=== PATIENT | female | born 1985 | race Caucasian/White ===

== ENCOUNTER 2025-01-06 12:18 | Observation (INO) | payer MEDICAID, SELFPAY ==
[2025-01-06] VITALS (8 sets, daily range): BP systolic 115–147; BP diastolic 72–99; PULSE 81–110; RESP 15–20; TEMP 36.4–36.8; O2SAT 94–100; BMI 31.6
--- NOTE | 2025-01-06 12:31 | CTR_ITS ---
PROCEDURE INFORMATION: Exam: CT Abdomen And Pelvis With Contrast Exam date and time: 01/06/2025 1:35 PM Age: 39 years old Clinical indication: Abdominal pain; Prior surgery; Surgery date: 6+ months; Surgery type: Gb; Additional info: Abd pain TECHNIQUE: Imaging protocol: Computed tomography of the abdomen and pelvis with contrast. Axial, coronal and sagittal reformatted images were created and reviewed. Radiation optimization: All CT scans at this facility use at least one of these dose optimization techniques: automated exposure control; mA and/or kV adjustment per patient size (includes targeted exams where dose is matched to clinical indication); or iterative reconstruction. Contrast material: OMNI 350; Contrast volume: 100 ml; Contrast route: INTRAVENOUS (IV); COMPARISON: No relevant prior studies available. RADIATION DOSE METRICS: Total DLP (mGy-cm): 843.64 FINDINGS: Diaphragm: Small hiatal hernia. Liver: Mild hepatic steatosis. Gallbladder and biliary ducts: Status post cholecystectomy. No biliary ductal dilatation. Pancreas: Unremarkable. Spleen: Unremarkable. Adrenal glands: Normal. No mass. Kidneys and ureters: No mass. No radiodense calculi. No hydronephrosis. Stomach and bowel: No bowel wall thickening. No obstruction. No pneumatosis. Appendix: Normal. Intraperitoneal space: Trace nonspecific free pelvic fluid, likely physiologic. No organized fluid collection. No free air. Vasculature: Unremarkable. No aneurysm. Lymph nodes: No pathologically enlarged lymph nodes. Urinary bladder: Unremarkable as visualized. Reproductive: Probable involuting left ovarian corpus luteal cyst. Bones/joints: No acute osseous abnormality. Osteopenia. Mild degenerative changes. Fixation hardware in the left sacroiliac joint. Soft tissues: Unremarkable. CT/CT abdomen pelvis w con* [id number]: 1[address] No CT evidence of acute intra-abdominal or pelvic pathology. 2. Additional findings, as above.
--- NOTE | 2025-01-06 12:32 | ECG_ITS ---
[facility] Test Date: 2025-01-06 Pat Name: Estephania Roblero Department: Room: Gender: Female [employer] Machine Setter: : 1985 Requested By: Joseph Norris Order Number: [id number] Fely MD: Latasha Estevez M.D. Measurements Intervals [place] Rate: 96 P: 68 MD: 145 QRS: 47 QRSD: 86 T: 30 QT: 360 QTc: 455 Interpretive Statements SINUS RHYTHM Nonspecific ST changes No previous ECG available for comparison Electronically Signed On 01-07-2025 12:34:14 ROD MACHINE OPERATOR by Latasha Estevez M.D. [email or web address]
[2025-01-06 12:51] LABS: Basophils % 0.5 %; Hematocrit 45.8 % (36-47); Lymphocytes # 0.9 10^3/uL (0.8-4.8); Lymphocytes % 14.1 %; Mean Corpuscular HGB Conc 31.9 g/dL (30-55); Mean Corpuscular Hemoglobin 29.6 pg (27-33); Mean Corpuscular Volume 92.7 fl (85-98); Mean Platelet Volume 10.6 fL (7.4-10.4); Monocytes # 0.3 10^3/uL (0.2-0.9); Monocytes % 4.2 %; Neutrophils # 5.31 10^3/uL (1.8-7.7); Neutrophils % 80.6 %; Nucleated Red Blood Cells % 0 %; Platelet Count 302 10^3/cmm (157-399); Red Blood Count 4.94 10^6/uL (3.85-5.65); Red Cell Distribution Width 12.5 % (12.1-15.1); White Blood Count 6.59 10^3/uL (3.29-11.43)
--- NOTE | 2025-01-06 13:01 | ED_ITS ---
HPI - GI Bleed 2 General: Chief complaint: GI Bleed Stated complaint: throwing up blood Time Seen by Provider: 01/06/25 12:30 History of Present Illness: 39-year-old female presents to the [facility] ency room reporting hematemesis. Patient is a daily drinker she is mildly tachycardic she has had abdominal discomfort for some time now. She has had workup for similar presentation in [place] including a EGD. We did get the old records on that from [place] see below she denies any chest pain or shortness of breath at this time. She is extremely anxious and tachycardic. She did have further episodes of hematemesis here. Associated symptoms: Reports abdominal pain, nausea and vomiting; Denies chills, fever(s) or rash Related Data Home Medications ?Medication ?Instructions ?Recorded ?Confirmed albuterol sulfate 90 mcg/actuation 90 mcg inhalation A S DIRECTED 01/06/25 01/06/25 aerosol inhaler (Ventolin HFA) amoxicillin 500 mg capsule 500 mg PO TID 01/06/2512/02 cimetidine 800 mg tablet 800 mg PO DAILY 01/06/2512/02 clonazepam 0.5 mg tablet 0.5 mg PO PRN Anxiety 01/06/25 cyclobenzaprine 10 mg tablet 10 mg PO DAILY 01/06/25 0 01/06/25 hydroxychloroquine 200 mg tablet 200 mg PO BID Lupus 0 01/06/25 01/06/25 levetiracetam 1,000 mg tablet 1,000 mg PO BID 01/06/25 01/06/25 metoprolol succinate 25 mg 25 mg PO BID 01/06/2501/06 tablet,extended release 24 hr ondansetron 8 mg disintegrating 8 mg PO PRN PRN Nausea And Vomiting 01/06/25 01/06/25 tablet pantoprazole 40 mg tablet,delayed 40 mg PO BID 5 01/06/25 release prednisone 20 mg tablet 20 mg PO DAILY 01/06/2512/02 quetiapine 400 mg tablet 400 mg PO DAILY 01/06/2512/02 rizatriptan 10 mg tablet 10 mg PO Q2H PRN Migraines 0 01/06/25 01/06/25 sucralfate 1 gram tablet 1 g PO BID 01/06/25 01/06/25 topiramate 50 mg tablet 50 mg PO DAILY 01/06/2512/02 vortioxetine 5 mg tablet 5 mg PO DAILY 01/06/2501/06 zolpidem 10 mg tablet 10 mg PO DAILY 01/06/2512/02 Previous Rx's ?Medication ?Instructions ?Recorded prochlorperazine maleate 10 mg 10 mg PO Q6H PRN refrac tory nausea 01/07/25 tablet (Compazine) 24 hours #30 tabs Allergies Allergy/AdvReac Type Severity Reaction Status Date / Time acetaminophen (From Tylenol) Allergy ALGY-Rash Verified 01/06/25 12:37 amitriptyline Allergy ALGY-Rash Verified 01/06/25 12:37 asenapine (From Saphris) Allergy ALGY-Rash Verified 01/06/25 12:37 naproxen Allergy ALGY-Rash Verified 01/06/25 12:37 pregabalin (From Lyrica) Allergy Unknown Verified 01/06/25 12:37 varenicline (From Chantix) Allergy Unknown Verified 01/06/25 12:37 Review of Systems 2 Const: Denies: fever(s) or chills Card: Denies: chest pain Resp: Denies: dyspnea GI: Reports: abdominal pain, nausea, vomiting, hematemesis and coffee ground emesis; Denies: hematochezia or melena : Denies: dysuria, urinary frequency or urinary urgency Musc: Denies: neck pain or back pain Skin/Breast: Denies: rash PFSH ED 2 PFSH: Medical History Tachycardia Esophagitis Gastroparesis Rheumatoid arthritis Lupus Bipolar disorder Tobacco use disorder Fear of hospitals PTSD (post-traumatic stress disorder) Depression Alcohol use disorder Surgical History History of section History of shoulder surgery History of knee surgery History of cholecystectomy History of esophagogastroduodenoscopy Family History Grandfather Prostate cancer Father Lung cancer Mother Breast cancer Social History (Reviewed 01/08/25 @ 06:36 by ISAI Beckford Smoking and tobacco/nicotine status: current every day tobacco/nicotine user Alcohol intake: current Substance/Drug Use: former Additional social history: Smokes 10 packs of cigarettes per day. Remote history of illicit drug use, quit over 10 years ago. Trying to quit drinking alcohol, currently drink 3 beers a day. Female Reproductive History: Date of last menstrual period: 01/01/25 Physical Exam 2 Const: GENERAL APPEARANCE: cooperative ORIENTATION/CONSCIOUSNESS: Yes awake, Yes oriented to person, Yes oriented to place and Yes oriented to time HENMT: COMMON NORMALS: normocephalic, atraumatic and hearing grossly normal bilaterally HEAD & SCALP: normocephalic and atraumatic Resp: COMMON NORMALS: normal respiratory effort, No retractions, No use of accessory muscles and clear to auscultation bilaterally AUSCULTATION: clear to auscultation bilaterally Cardio: COMMON NORMALS: regular rate, regular rhythm and No murmurs present (Cardio) RATE: regular rate RHYTHM: regular rhythm GI: COMMON NORMALS: Soft to palpation and No hepatosplenomegaly present A USCULTATION: Yes normoactive bowel sounds PALPATION: Yes Soft to palpation, No Tenderness to palpation present (GI), No Guarding due to palpation present (GI) and Yes No hepatosplenomegaly present Extremity: COMMON NORMALS: normal to inspection, capillary refill normal, no clubbing, cyanosis or edema, no calf tenderness and no pedal edema Neuro: SENSORIUM/ORIENTATION: Yes oriented to person, Yes oriented to place and Yes oriented to time Skin: COMMON NORMALS: no rashes or lesions noted GENERAL SKIN EXAM: no rashes or lesions noted Course 2 Vital Signs: Vital signs: Vital Signs Temperature 98.1 F 01/07/25 08:00 Pulse Rate 88 01/07/25 09:45 Respiratory Rate 17 01/07/25 08:00 Blood Pressure 120/72 01/07/25 09:45 Pulse Oximetry 99 01/07/25 09:45 Oxygen Delivery Me thod Room Air 01/07/25 08:00 MDM - GI Bleed Medical Decision Making Patient very tachycardic up to the 120s at times but is sinus tachycardia responded well to Ativan concerned she may be withdrawing from alcohol on the records we got from [place] she reported to them she drinks more than what she had told us. She did have further episodes of hematemesis. She did not have any syncope. We were able to eventually get the EGD report from [place] there is no gastric or esophageal varices. Will admit due to her tachycardia put her on a CIWA protocol she has been given Protonix. Discussed with Dr. Cartwright orders written Medical Records I reviewed the patient's medical records. Lab Data I reviewed the patient's lab results. 01/07/25 05:17 01/07/25 05:17 Radiology Impressions Abdomen/Pelvis CT 01/06/25 12:31 IMPRESSION: 1. No CT evidence of acute intra-abdominal or pelvic pathology. 2. Additional findings, as above. Laboratory Results WBC 6.59 10^3/uL (3.29-11.43) 01/06/25 12:43 RBC 4.94 10^6/uL (3.85-5.65) 01/06/25 12:43 Hgb 14.60 g/dL (11.27-16.99) 01/06/25 12:43 Hct 45.8 % (36-47) 01/06/25 12:43 MCV 92.7 fl (85-98) 01/06/25 12:43 MCH 29.6 pg (27-33) 01/06/25 12:43 MCHC 31.9 g/dL (30-55) 01/06/25 12:43 RDW 12.5 % (12.1-15.1) 01/06/25 12:43 Plt Count 302 10^3/cmm (157-399) 01/06/25 12:43 MPV 10.6 fL (7.4-10.4) H 01/06/25 12:43 Neut % (Auto) 80.6 % 01/06/25 12:43 Lymph % (Auto) 14.1 % 01/06/25 12:43 [place] % (Auto) 4.2 % 01/06/25 12:43 Eos % (Auto) 0.0 % 01/06/25 12:43 Baso % (Auto) 0.5 % 01/06/25 12:43 Neut # (Auto) 5.31 10^3/uL (1.8-7.7) 01/06/25 12:43 Lymph # (Auto) 0.9 10^3/uL (0.8-4.8) 01/06/25 12:43 [place] # (Auto) 0.3 10^3/uL (0.2-0.9) 01/06/25 12:43 Eos # (Auto) 0.0 10^3/uL (0.0-0.8) 01/06/25 12:43 Baso # (Auto) 0.0 10^3/uL (0.0-0.1) 01/06/25 12:43 Nucleated RBC % (auto) 0 % 01/06/25 12:43 Nucleated RBCs # 0.0 /100WBC 01/06/25 12:43 PT 12.50 SECONDS (12.1-14.9) 01/06/25 12:43 INR 0.88 (0.8-1.2) 01/06/25 12:43 APTT 24.0 SECONDS (23.9-36.7) 01/06/25 12:43 Sodium 135 mmol/L (136-145) L 01/06/25 12:43 Potassium 3.8 mmol/L (3.5-5.1) 01/06/25 12:43 Chloride 101 mmol/L (98-107) 01/06/25 12:43 Carbon Dioxide 25 mmol/L (22-29) 01/06/25 12:43 Anion Gap 12.8 (5-19) 01/06/25 12:43 BUN 12 mg/dL (6-20) 01/06/25 12:43 Creatinine 1.1 mg/dL (0.5-0.9) H 01/06/25 12:43 GFR Calculation 55.6 mL/min (90-130) L 01/06/25 12:43 Glucose 164 mg/dL (65-115) H 01/06/25 12:43 Calculated Osmolality 283 mOsm/kg (285-295) L 01/06/25 12:43 Calcium 9.4 mg/dL (8.5-10.5) 01/06/25 12:43 Total Bilirubin 0.3 mg/dL (0.15-1.2) 01/06/25 12:43 AST 23 U/L (0-32) 01/06/25 12:43 ALT 21 U/L (0-33) 01/06/25 12:43 Alkaline Phosphatase 99 U/L (35-105) 01/06/25 12:43 Total Protein 7.3 g/dL (6.6-8.7) 01/06/25 12:43 Albumin 4.3 g/dL (3.5-5.2) 01/06/25 12:43 Globulin 3.0 g/dL (1.3-4.6) 01/06/25 12:43 HCG, Qual Negative (Negative) 01/06/25 12:43 Urine Color Yellow (Yellow) 01/06/25 13:02 Urine Appearance Turbid (CLEAR) A 01/06/25 13:02 Urine pH 8.5 (5-7) A 01/06/25 13:02 Ur Specific [place] 1.021 (1.005-1.030) 01/06/25 13:02 Urine Protein 2+ (Negative) A 01/06/25 13:02 Urine Glucose (UA) Negative (Normal) 01/06/25 13:02 Urine Ketones Negative (Negative) 01/06/25 13:02 Urine Blood Negative (Negative) 01/06/25 13:02 Urine Nitrate Negative (Negative) 01/06/25 13:02 Urine Bilirubin Negative (Negative) 01/06/25 13:02 Urine Urobilinogen 1.0 mg/dL (Negative) 01/06/25 13:02 Ur Leukocyte Esterase Trace (Negative) A 01/06/25 13:02 Urine RBC 0-4 /hpf (0-2) H 01/06/25 13:02 Urine WBC 0-4 /hpf (0-5) H 01/06/25 13:02 Ur Squamous Epith Cells 15-25 /hpf (0-5) H 01/06/25 13:02 Amorphous Sediment 3+ /hpf 01/06/25 13:02 Urine Bacteria 1+ /hpf (NONE) H 01/06/25 13:02 Hyaline Casts 5-10 /lpf H 01/06/25 13:02 Gastric Occult Blood Positive (Negative) H 01/06/25 15:22 Blood Type O Positive 01/06/25 12:43 Rho(D) Type Rh positive 01/06/25 12:43 Antibody Screen Negative 01/06/25 12:43 All radiology interpretation(s) finalized by discharge Discharge Plan Discharge Patient Disposition: Admitted As Inpatient Admit Provider: Dimitris Cartwright Clinical Impression: Barretts esophagus, Nausea and vomiting, Hematemesis, Alcohol use disorder Condition: Stable Discharge Diet: Advance as tolerated and Usual diet Discharge Activity: Resume usual activity and Increase activity as tolerated Coding Level of Care Code ED Human Capital Analyst for Amado Andrews
[2025-01-06 13:03] LABS: INR 0.88 (0.8-1.2)
[2025-01-06 13:08] LABS: Alanine Aminotransferase 21 U/L (0-33); Albumin Level 4.3 g/dL (3.5-5.2); Alkaline Phosphatase 99 U/L (35-105); Anion Gap 12.8 (5-19); Aspartate Amino Transferase 23 U/L (0-32); Blood Urea Nitrogen 12 mg/dL (6-20); Calcium 9.4 mg/dL (8.5-10.5); Carbon Dioxide 25 mmol/L (22-29); Chloride 101 mmol/L (98-107); Creatinine Clr Calc Pharmacy 85.9858; Glomerular Filtration Rate 55.6 mL/min (90-130); Glucose 164 mg/dL (65-115); Osmolality Calculated 283 mOsm/kg (285-295); Potassium 3.8 mmol/L (3.5-5.1); Sodium 135 mmol/L (136-145); Total Bilirubin 0.3 mg/dL (0.15-1.2); Total Protein 7.3 g/dL (6.6-8.7)
[2025-01-06 13:12] LABS: Bilirubin Urine Negative (Negative); Blood Urine Negative (Negative); Glucose Urine UA Negative (Normal); Ketones Urine Negative (Negative); Leukocyte Esterase Urine Trace (Negative); Nitrate Urine Negative (Negative); Protein Urine 2+ (Negative); Specific Gravity, Urine 1.021 (1.005-1.030); Urine Appearance Turbid (CLEAR); Urine Color Yellow (Yellow); pH Urine 8.5 (5-7)
[2025-01-06 13:14] LABS: HCG, Serum Qual Negative (Negative)
[2025-01-06 13:18] LABS: Add Urine Microscopic? YES; Bacteria Urine 1+ /hpf; RBC Urine 0-4 /hpf (0-2); Squamous Epithelial Cell Urine 15-25 /hpf (0-5); WBC Urine 0-4 /hpf (0-5)
[2025-01-06 13:19] LABS: Amorphous Sediment Urine 3+ /hpf
[2025-01-06] MEDS: iohexol 350 mg/mL 500 mL Btl (per mL) IV (13:38)
--- NOTE | 2025-01-06 14:44 | PC.NURSE ---
PER VERBAL ORDER FROM DR. BEARD, ORDER AND ADMIN ATIVAN 1MG IVP ONCE DUE TO N/V AND ANXIETY
[2025-01-06] MEDS: LORazepam 2 mg/mL INJ 1 mL 1 MG IVP (14:50)
[2025-01-06] MEDS: lidocaine 2% viscous 15 ML, aluminum-mag hydrox-simethicon 30 ML, sucralfate oral liq 1 GM PO (15:39)
[2025-01-06 16:12] LABS: Gastricult Occult Blood Positive (Negative)
[2025-01-06] MEDS: prochlorperazine 10 mg/2 mL Inj IVP (16:12)
--- NOTE | 2025-01-06 16:15 | PC.NURSE ---
PER VERBAL ORDER FROM DR. BEARD, ORDER AND ADMIN ATIVAN 2MG IVP ONCE FOR POSSIBLE ETOH WITHDRAWALS.
[2025-01-06] MEDS: pantoprazole 40 mg SDV 80 MG IVP (16:23)
[2025-01-06] MEDS: LORazepam 2 mg/mL INJ 1 mL IVP ×3 (16:34→22:15)
--- NOTE | 2025-01-06 17:09 | PM.HP ---
Providers/Chief Complaint Primary Care Provider: Florina Campbell Chief Complaint: throwing up blood History of Present Illness Estephania Roblero is a 39 year old female with past medical history significant for lupus, rheumatoid arthritis, depression, bipolar disorder, PTSD, GERD, Daniels's esophagus, esophagitis, tobacco use, and alcohol use who presents emergency department with hematemesis. She does have a history of recent hematemesis but symptoms again started today. She endorses associated nausea, vomiting, and anxiety. Oral intake worsens symptoms. Denies alleviating factors. She reports a history of alcohol use. She is trying to quit drinking. She is down to only 3 beers a day now. She does have a history of recent hematemesis. She underwent an EGD on December 25, 2024 at [facility]. EGD report has been obtained by the ED and is being uploaded to the chart. EGD she did show evidence of a erosive esophagitis, Daniels's esophagus, no masses, no gastric varices, and normal duodenal mucosa. Review of Systems Narrative: A complete review of systems was obtained and is negative except as stated in HPI. Medications/Allergies Home Medications ?Medication ?Instructions ?Recorded ?Confirmed ?Last Taken ?Type amoxicillin 500 mg capsule 500 mg PO TID 01/06/25 01/06/25 Unknown History cimetidine 800 mg tablet 800 mg PO DAILY 01/06/25 01/06/25 Unknown History clonazepam 0.5 mg tablet 0.5 mg PO DAILY 01/06/25 01/06/25 Unknown History hydroxychloroquine 200 mg tablet 200 mg PO BID 01/06/25 01/06/25 Unknown History levetiracetam 1,000 mg tablet 1,000 mg PO BID 01/06/25 01/06/25 Unknown History metoprolol succinate 25 mg 25 mg PO TID 01/06/25 01/06/25 Unknown History tablet,extended release 24 hr ondansetron 8 mg disintegrating 8 mg PO PRN PRN Nausea And Vomiting 01/06/25 01/06/25 Unknown History tablet pantoprazole 40 mg tablet,delayed 40 mg PO BID 01/06/25 01/06/25 Unknown History release paroxetine HCl 20 mg tablet 20 mg PO DAILY 01/06/25 01/06/25 Unknown History prednisone 20 mg tablet 20 mg PO DAILY 01/06/25 01/06/25 Unknown History quetiapine 400 mg tablet 400 mg PO DAILY 01/06/25 01/06/25 Unknown History sucralfate 1 gram tablet 1 g PO BID 01/06/25 01/06/25 Unknown History zolpidem 10 mg tablet 10 mg PO DAILY 01/06/25 01/06/25 Unknown History Allergies Allergy/AdvReac Type Severity Reaction Status Date / Time acetaminophen (From Tylenol) Allergy ALGY-Rash Verified 01/06/25 12:37 amitriptyline Allergy ALGY-Rash Verified 01/06/25 12:37 asenapine (From Saphris) Allergy ALGY-Rash Verified 01/06/25 12:37 naproxen Allergy ALGY-Rash Verified 01/06/25 12:37 pregabalin (From Lyrica) Allergy Unknown Verified 01/06/25 12:37 varenicline (From Chantix) Allergy Unknown Verified 01/06/25 12:37 PFSH Acute PFSH: Medical History Gastroparesis Rheumatoid arthritis Lupus Bipolar disorder Tobacco use disorder Fear of hospitals PTSD (post-traumatic stress disorder) Depression Alcohol use disorder Surgical History History of section History of shoulder surgery History of knee surgery History of cholecystectomy History of esophagogastroduodenoscopy Family History Grandfather Prostate cancer Father Lung cancer Mother Breast cancer Social History Smoking and tobacco/nicotine status: current every day tobacco/nicotine user Alcohol intake: current Substance/Drug Use: former Additional social history: Smokes 10 packs of cigarettes per day. Remote history of illicit drug use, quit over 10 years ago. Trying to quit drinking alcohol, currently drink 3 beers a day. Female Reproductive History: Date of last menstrual period: 01/01/25 Vitals/I&O/Wt Last Vital Signs Temp 98.2 F 01/06/25 12:40 Pulse 102 H 01/06/25 16:38 Resp 20 H 01/06/25 15:30 BP 115/93 01/06/25 16:38 Pulse Ox 96 01/06/25 16:38 O2 Del Method Room Air 01/06/25 16:38 Weight last 48 hrs Weight 97.069 kg Physical Exam Narrative: General: Patient is awake. Appears slightly anxious. Head: Normocephalic. Atraumatic. EOM intact. Dry mucous membranes. Neck: No JVD. Cardiovascular: Regular rhythm. No gallops. No murmurs. Mildly tachycardic. Lungs: Clear to auscultation, no use of accessory muscles, no crackles or wheezes. Skin: No jaundice. No rashes. Abdomen: Normal bowel sounds, abdomen soft and nontender. Extremities: No cyanosis or clubbing. Musculoskeletal: No swollen or erythematous joints. Neurological: Moves all 4 extremities. No myoclonus. Data 01/06/25 12:43 01/06/25 12:43 A&P Assessment and plan (1) Hematemesis: Patient with hematemesis consistent with acute upper GI bleed Start IV PPI Clear liquid diet, may advance as tolerated if symptoms improve this evening Start IV fluids Trend hemoglobin (2) Nausea and vomiting: Patient with intractable nausea and vomiting Will order multi antiemetics IV fluid resuscitation (3) Esophagitis: EGD report reviewed, will be uploaded into medical records Patient on amoxicillin, rabia for H. pylori was positive during EGD PPI as above (4) Alcohol use disorder: Would benefit from cessation Will monitor with CIWA (5) Tobacco use disorder: Would benefit from cessation Patient agreeable to nicotine patch (6) Depression: Depression: Continue Paxil Bipolar disorder: Continue Seroquel (7) Tachycardia: Continue home metoprolol Plan Lupus: Continue hydroxychloroquine DVT prophylaxis: Low risk. Patient ambulatory. PDMP PDMP Reviewed: Not Reviewed Attestations Medical Necessity Statement*: Patient presents with hematemesis with expected hospitalization not to cross 2 midnights for serial hemoglobin checks, IV PPI, IV fluids and supportive care. Coding Level of Care Code 08975 Diagnoses Hematemesis K92.0 Nausea and vomiting R11.2 Esophagitis K20.90 Alcohol use disorder F10.90 Tobacco use disorder F17.200 Depression F32.A Tachycardia R00.0
[2025-01-06] MEDS: levETIRAcetam 500 mg Tablet 1000 MG PO (18:46)
[2025-01-06] MEDS: nicotine 21 mg Patch 1 PATCH TRANSDERMA (18:54)
[2025-01-06] MEDS: sodium chloride 0.9% 1,000 ML 125 ML IV (18:55)
[2025-01-06] MEDS: amoxicillin 500 mg Capsule PO (22:14)
[2025-01-06] MEDS: hydroxychloroquine 200 mg Tablet PO (22:14)
[2025-01-06] MEDS: metoprolol succinate ER (24 HR) 25 mg Tablet PO (22:14)
[2025-01-06] MEDS: ondansetron 2 mg/ML SDV 2 mL 4 MG IVP (22:15)
[2025-01-06] MEDS: zolpidem 5 mg Tablet 10 MG PO (22:15)
--- NOTE | 2025-01-06 23:00 | PC.NURSE ---
Entered room to administer medications and perform assessments. Patient's significant other was lying in bed with the patient. Educated on safety protocols and that only one adult may use the bed at a time for safety reasons. Patient and significant other agreeable and stated understanding. Educated patient on signs and symptoms of alcohol withdrawal, CIWA assessment and scoring, and treatment of withdrawal symptoms. Educated on medications ordered and treatment plan. Confirmed and updated home medication list, patient was able to state when she last took each home medication. Home medications present at bedside, educated that these medications should be locked in pyxis or taken home. Patient verbalized understanding. All questions answered at this time.
[2025-01-07] VITALS: BP 123/70; PULSE 97; RESP 17; TEMP 36.6; O2SAT 98
[2025-01-07 04:00] VITALS: BP 113/77; PULSE 97; RESP 16; TEMP 36.7; O2SAT 93
[2025-01-07] MEDS: prochlorperazine 10 mg/2 mL Inj IVP (05:00)
[2025-01-07] MEDS: LORazepam 2 mg/mL INJ 1 mL IVP (05:00)
[2025-01-07 05:26] LABS: Basophils # 0.1 10^3/uL (0.0-0.1); Basophils % 0.9 %; Eosinophils # 0.1 10^3/uL (0.0-0.8); Eosinophils % 1.5 %; Hematocrit 43.3 % (36-47); Lymphocytes # 2.1 10^3/uL (0.8-4.8); Lymphocytes % 31.6 %; Mean Corpuscular HGB Conc 31.4 g/dL (30-55); Mean Corpuscular Hemoglobin 29.8 pg (27-33); Mean Corpuscular Volume 94.7 fl (85-98); Mean Platelet Volume 10.5 fL (7.4-10.4); Monocytes # 0.7 10^3/uL (0.2-0.9); Monocytes % 10.4 %; Neutrophils # 3.57 10^3/uL (1.8-7.7); Nucleated Red Blood Cells % 0 %; Platelet Count 230 10^3/cmm (157-399); Red Blood Count 4.57 10^6/uL (3.85-5.65); Red Cell Distribution Width 12.4 % (12.1-15.1); White Blood Count 6.51 10^3/uL (3.29-11.43)
[2025-01-07 05:49] LABS: Blood Urea Nitrogen 12 mg/dL (6-20); Calcium 9.1 mg/dL (8.5-10.5); Carbon Dioxide 21 mmol/L (22-29); Chloride 105 mmol/L (98-107); Creatinine Clr Calc Pharmacy 95.4143; Glomerular Filtration Rate 62.1 mL/min (90-130); Glucose 99 mg/dL (65-115); Osmolality Calculated 286 mOsm/kg (285-295); Sodium 138 mmol/L (136-145)
[2025-01-07 05:53] LABS: Anion Gap 15.6 (5-19); Potassium 3.6 mmol/L (3.5-5.1)
[2025-01-07] MEDS: sodium chloride 0.9% 1,000 ML 125 ML IV (07:50)
[2025-01-07 08:00] VITALS: BP 111/76; PULSE 98; RESP 17; TEMP 36.7; O2SAT 98
[2025-01-07] MEDS: calcium carbonate 500 mg Chew Tablet 1000 MG PO (08:44)
[2025-01-07] MEDS: folic acid 1 mg Tablet PO (08:45)
[2025-01-07] MEDS: metoprolol succinate ER (24 HR) 25 mg Tablet PO (08:45)
[2025-01-07] MEDS: sucralfate 1 gm Tablet PO (08:45)
[2025-01-07] MEDS: levETIRAcetam 500 mg Tablet 1000 MG PO (08:45)
[2025-01-07] MEDS: hydroxychloroquine 200 mg Tablet PO (08:46)
[2025-01-07] MEDS: CLONazepam 0.5 mg Tablet PO (08:46)
[2025-01-07] MEDS: PARoxetine 20 mg Tablet PO (08:47)
[2025-01-07] MEDS: quetiapine 100 mg Tablet 400 MG PO (08:47)
[2025-01-07] MEDS: thiamine 100 mg Tablet PO (08:47)
[2025-01-07] MEDS: ondansetron 2 mg/ML SDV 2 mL 4 MG IVP (08:47)
[2025-01-07] MEDS: pantoprazole 40 mg SDV IVP (08:47)
--- NOTE | 2025-01-07 09:14 | PM.DCS ---
Discharge Providers Date of Admission: 01/06/25 17:39 Date of Discharge: January 07, 2025 Attending Provider at Admission: Dimitris Cartwright MD Attending Provider at Discharge: Dimitris Cartwright MD Primary Care Provider: Florina Campbell Diagnoses at Discharge Discharge Diagnosis (1) Hematemesis: Status: Acute (2) Nausea and vomiting: Status: Acute (3) Esophagitis: Status: Acute (4) Alcohol use disorder: Status: Acute (5) Tobacco use disorder: Status: Acute (6) Depression: Status: Acute (7) Tachycardia: Status: Acute Reason for Visit Reason for Visit: throwing up blood Hospital Course Hospital Course Estephania Roblero is a 39 year old female with past medical history significant for lupus, rheumatoid arthritis, depression, bipolar disorder, PTSD, GERD, Daniels's esophagus, esophagitis, tobacco use, and alcohol use who presents emergency department with hematemesis secondary to acute upper GI bleed. She undergone recent endoscopy which was reviewed. She was treated with bowel rest with liquid diet, IV PPI, IV fluids and supportive care. Hematemesis resolved but she did receive remain nauseous. Hemoglobin remained in the normal range. She will continue with her current medications with addition of Compazine for refractory nausea. She was eager to discharge home she does not traditionally do well in hospitals. Return precautions were discussed at length. She will discharged to home with family. She is to follow-up with her primary provider as well as GI physician for ongoing care. Physical Exam Narrative: General: Patient is awake and alert. Appears fatigued. Pleasant. Head: Normocephalic. Atraumatic. EOM intact. Neck: No JVD. Cardiovascular: RRR. No gallops. No murmurs. No peripheral edema. Lungs: Clear to auscultation, no use of accessory muscles, no crackles or wheezes. Skin: No jaundice. No rashes. Abdomen: Normal bowel sounds, abdomen soft and nontender. Extremities: No cyanosis or clubbing. Musculoskeletal: No swollen or erythematous joints. Neurological: Moves all 4 extremities. No myoclonus. Discharge Data Studies Completed and Pending Completed Studies During Hospitalization Category Date Time Status CT abdomen pelvis w con* [id number] Stat Cat Scan 01/06/25 12:31 Completed Radiology Impressions Abdomen/Pelvis CT 01/06/25 12:[address]: [address] evidence of acute intra-abdominal or pelvic pathology. 2. Additional findings, as above. Laboratory Results WBC 6.51 10^3/uL (3.29-11.43) 01/07/25 05:17 RBC 4.57 10^6/uL (3.85-5.65) 01/07/25 05:17 Hgb 13.60 g/dL (11.27-16.99) 01/07/25 05:17 Hct 43.3 % (36-47) 01/07/25 05:17 MCV 94.7 fl (85-98) 01/07/25 05:17 MCH 29.8 pg (27-33) 01/07/25 05:17 MCHC 31.4 g/dL (30-55) 01/07/25 05:17 RDW 12.4 % (12.1-15.1) 01/07/25 05:17 Plt Count 230 10^3/cmm (157-399) 01/07/25 05:17 MPV 10.5 fL (7.4-10.4) H 01/07/25 05:17 Neut % (Auto) 55.0 % 01/07/25 05:17 Lymph % (Auto) 31.6 % 01/07/25 05:17 Garland % (Auto) 10.4 % 01/07/25 05:17 Eos % (Auto) 1.5 % 01/07/25 05:17 Baso % (Auto) 0.9 % 01/07/25 05:17 Neut # (Auto) 3.57 10^3/uL (1.8-7.7) 01/07/25 05:17 Lymph # (Auto) 2.1 10^3/uL (0.8-4.8) 01/07/25 05:17 Garland # (Auto) 0.7 10^3/uL (0.2-0.9) 01/07/25 05:17 Eos # (Auto) 0.1 10^3/uL (0.0-0.8) 01/07/25 05:17 Baso # (Auto) 0.1 10^3/uL (0.0-0.1) 01/07/25 05:17 Nucleated RBC % (auto) 0 % 01/07/25 05:17 Nucleated RBCs # 0.0 /100WBC 01/07/25 05:17 PT 12.50 SECONDS (12.1-14.9) 01/06/25 12:43 INR 0.88 (0.8-1.2) 01/06/25 12:43 APTT 24.0 SECONDS (23.9-36.7) 01/06/25 12:43 Sodium 138 mmol/L (136-145) 01/07/25 05:17 Potassium 3.6 mmol/L (3.5-5.1) 01/07/25 05:17 Chloride 105 mmol/L (98-107) 01/07/25 05:17 Carbon Dioxide 21 mmol/L (22-29) L 01/07/25 05:17 Anion Gap 15.6 (5-19) 01/07/25 05:17 BUN 12 mg/dL (6-20) 01/07/25 05:17 Creatinine 1.0 mg/dL (0.5-0.9) H 01/07/25 05:17 GFR Calculation 62.1 mL/min (90-130) L 01/07/25 05:17 Glucose 99 mg/dL (65-115) 01/07/25 05:17 Calculated Osmolality 286 mOsm/kg (285-295) 01/07/25 05:17 Calcium 9.1 mg/dL (8.5-10.5) 01/07/25 05:17 Magnesium 2.0 mg/dL (1.7-2.3) 01/07/25 05:17 Total Bilirubin 0.3 mg/dL (0.15-1.2) 01/06/25 12:43 AST 23 U/L (0-32) 01/06/25 12:43 ALT 21 U/L (0-33) 01/06/25 12:43 Alkaline Phosphatase 99 U/L (35-105) 01/06/25 12:43 Total Protein 7.3 g/dL (6.6-8.7) 01/06/25 12:43 Albumin 4.3 g/dL (3.5-5.2) 01/06/25 12:43 Globulin 3.0 g/dL (1.3-4.6) 01/06/25 12:43 HCG, Qual Negative (Negative) 01/06/25 12:43 Urine Color Yellow (Yellow) 01/06/25 13:02 Urine Appearance Turbid (CLEAR) A 01/06/25 13:02 Urine pH 8.5 (5-7) A 01/06/25 13:02 Ur Specific Squire 1.021 (1.005-1.030) 01/06/25 13:02 Urine Protein 2+ (Negative) A 01/06/25 13:02 Urine Glucose (UA) Negative (Normal) 01/06/25 13:02 Urine Ketones Negative (Negative) 01/06/25 13:02 Urine Blood Negative (Negative) 01/06/25 13:02 Urine Nitrate Negative (Negative) 01/06/25 13:02 Urine Bilirubin Negative (Negative) 01/06/25 13:02 Urine Urobilinogen 1.0 mg/dL (Negative) 01/06/25 13:02 Ur Leukocyte Esterase Trace (Negative) A 01/06/25 13:02 Urine RBC 0-4 /hpf (0-2) H 01/06/25 13:02 Urine WBC 0-4 /hpf (0-5) H 01/06/25 13:02 Ur Squamous Epith Cells 15-25 /hpf (0-5) H 01/06/25 13:02 Amorphous Sediment 3+ /hpf 01/06/25 13:02 Urine Bacteria 1+ /hpf (NONE) H 01/06/25 13:02 Hyaline Casts 5-10 /lpf H 01/06/25 13:02 Gastric Occult Blood Positive (Negative) H 01/06/25 15:22 Blood Type O Positive 01/06/25 12:43 Rho(D) Type Rh positive 01/06/25 12:43 Antibody Screen Negative 01/06/25 12:43 Vitals Last Vital Signs Temp 98.1 F 01/07/25 04:00 Pulse 97 01/07/25 04:00 Resp 16 01/07/25 04:00 BP 113/77 01/07/25 04:00 Pulse Ox 93 01/07/25 04:00 O2 Del Method Room Air 01/07/25 04:00 Discharge Plan Discharge Patient Disposition: Home Condition: Stable Prescriptions: New prochlorperazine maleate [Compazine] 10 mg tablet 10 mg PO Q6H PRN (Reason: refractory nausea) 1 Days Qty: 30 1RF Continued amoxicillin 500 mg capsule 500 mg PO TID sucralfate 1 gram tablet 1 g PO BID prednisone 20 mg tablet 20 mg PO DAILY clonazepam 0.5 mg tablet 0.5 mg PO PRN cimetidine 800 mg tablet 800 mg PO DAILY ondansetron 8 mg tablet,disintegrating 8 mg PO PRN PRN (Reason: Nausea And Vomiting) pantoprazole 40 mg tablet,delayed release (DR/EC) 40 mg PO BID metoprolol succinate 25 mg tablet extended release 24 hr 25 mg PO BID Rx Instructions: May take one additional dose as needed for palpitations. hydroxychloroquine 200 mg tablet 200 mg PO BID zolpidem 10 mg tablet 10 mg PO DAILY quetiapine 400 mg tablet 400 mg PO DAILY levetiracetam 1,000 mg tablet 1,000 mg PO BID cyclobenzaprine 10 mg tablet 10 mg PO DAILY rizatriptan 10 mg Tablet 10 mg PO Q2H PRN (Reason: Migraines) Rx Instructions: do not exceed 3 doses per 24 hrs albuterol sulfate [Ventolin HFA] 90 mcg/actuation Hfa Aerosol Inhaler 90 mcg INHALATION DIRECTED Patient Comments: Last used 3-4 weeks ago Rx Instructions: Inhale 2 puffs every 4-6 hours by inhalation route as needed for asthma/copd symptoms topiramate 50 mg tablet 50 mg PO DAILY Rx Instructions: At night vortioxetine 5 mg Tablet 5 mg PO DAILY Discharge Orders: Discharge Order (Routine); Ordered 01/07/25 Ordered By: Dimitris Cartwright Referrals: Florina Campbell FNP [Primary Care Provider] - (You will need to contact your health care provider tomorrow 01/08/25 at [phone] to make a follow up appointment within 7-10.) Discharge Diet: Advance as tolerated and Usual diet Discharge Activity: Resume usual activity and Increase activity as tolerated Patient Instructions: Prochlorperazine (By mouth) (Compazine), Esophagitis (DC), Hematemesis (GEN), Opioid Safety Plan of Treatment: 1. Take medications as prescribed. 2. Return precautions discussed at length. 3. Follow-up with gastroenterology. 4. Follow-up with your PCP within 1 week. Discharge Attestations Time Spent in Discharge Care*: greater than 30 min Quality Metrics Clinical Quality Measures [ No reported AMI, CVA or VTE this stay] Coding Level of Care Code Acute Code for Chg Fwd Diagnoses Hematemesis K92.0 Nausea and vomiting R11.2 Esophagitis K20.90 Alcohol use disorder F10.90 Tobacco use disorder F17.200 Depression F32.A Tachycardia R00.0
--- NOTE | 2025-01-07 09:22 | PC.NURSE ---
Patient insists on having her discharge medication for her vomiting sent to the [facility] that is not open today it will open in the morning. Patient states that she has some stuff left over for nausea and vomiting at home.
[2025-01-07 09:45] VITALS: BP 120/72; PULSE 88; O2SAT 99
== END 2025-01-07 09:47 | disposition home or self-care (01) ==
LOC: ER 13:02 → MEDSURG 19:20
PROVIDERS: Admitting Provider Internal Medicine; Emergency Provider Family Medicine; PCP Nurse Practitioner Family; Visit Provider Internal Medicine
DX: K92.0 Hematemesis (principal); K20.90 Esophagitis, unspecified without bleeding; F10.90 Alcohol use, unspecified, uncomplicated; R00.0 Tachycardia, unspecified; M06.9 Rheumatoid arthritis, unspecified; F31.9 Bipolar disorder, unspecified; F43.10 Post-traumatic stress disorder, unspecified; F41.9 Anxiety disorder, unspecified; Z79.899 Other long term (current) drug therapy; K22.70 Barrett's esophagus without dysplasia; Z88.8 Allergy status to other drugs, medicaments and biological substances; M32.9 Systemic lupus erythematosus, unspecified; K31.84 Gastroparesis; F17.210 Nicotine dependence, cigarettes, uncomplicated
CPT/HCPCS: 36415; 74177; 80048; 80053; 81001; 82271; 83735; 84703; 85025; 85610; 85730; 86850; 86900; 93005; 96374; 96375; 96376; 99285; G0378; J0780; J2060; J2405; J2470; J7030